=== PATIENT | female | born 1965 | race Caucasian/White ===

== ENCOUNTER 2022-05-03 13:56 | Emergency (ER) | payer BC ==
[~2022-05-03] VITALS: Ht 160 cm; Wt 84.1 kg
[2022-05-03 14:05] VITALS: BP 147/87
[2022-05-03 14:15] VITALS: BP 145/85
[2022-05-03 14:30] VITALS: BP 133/79
[2022-05-03] MEDS ORDERED: PENICILLN VK500 MG PO (14:55)
[2022-05-03] MEDS ORDERED: HYDROCO/APAP1 TA9 PO (14:55)
[2022-05-03 15:07] VITALS: BP 133/79
== END 2022-05-03 15:15 | disposition home or self-care (01) | DRG 159 ==
LOC: ED 13:56
DX: K02.9 Dental caries, unspecified (principal)